=== PATIENT | female | born 1960 | race Caucasian/White ===

== ENCOUNTER → 2020-07-01 10:11 | Outpatient (BNVA) | payer BC, SELFPAY | PROVIDERS: Visit Provider Emergency Medicine | DX: R35.0 Frequency of micturition (principal); R52 Pain, unspecified | CPT/HCPCS: 81000 ==

== ENCOUNTER → 2020-09-22 11:51 | Outpatient (BNVA) | payer BC, SELFPAY | PROVIDERS: Visit Provider Nurse Practitioner Family | DX: Z20.828 Contact with and (suspected) exposure to other viral communicable diseases (principal) | CPT/HCPCS: 87635 ==